=== PATIENT | female | born 1960 | race Caucasian/White ===

== ENCOUNTER 2024-11-06 15:45 | Emergency (ER) | payer BC, SELFPAY ==
[2024-11-06 15:56] VITALS: BP 154/74; PULSE 94; RESP 22; TEMP 36.8; O2SAT 99
[2024-11-06 16:14] VITALS: PULSE 88; RESP 16; O2SAT 97
--- NOTE | 2024-11-06 16:46 | EDNOTE_ITS ---
ED SOB =RME/HPI General Chief Complaint: Shortness of Breath/Dyspnea Stated Complaint: SOB Time Seen by Provider: 11/06/24 16:43 Arrival date/time: 11/06/24 15:45 Limitations: no limitations RME / HPI RME / HPI Narrative: 64 year old female with history of asthma presents to the ED BIBA from work for evaluation of shortness of breath. Patient described her chest feeling tight making it difficult to take a deep breath. Accompanied by a cough. States she gave herself 10 puffs of Albuterol inhaler without relief, prompting ED visit. Per medics, on arrival patient had audible wheezing and saturating low 94% on room air. Was given two 2.5mg Albuterol breathing treatments with improvement. While in the ED, patient reports feeling shaky which she attributes to the Albuterol and shortness of breath has improved. States her symptoms today were similar to previous asthma attacks, last occurring 3 months ago. Denies fevers, chills, sweats, or recent illness. Related Data Home Medications ?Medication ?Instructions ?Recorded ?Confirmed budesonide 0.5 mg/2 mL suspension 0.5 mg inhalation NH N PRN Dyspnea 02/18/21 02/18/21 for nebulization albuterol sulfate 90 mcg/actuation 90 mcg inhalation Q 4HR PRN Dyspnea 02/19/21 02/19/21 aerosol inhaler albuterol sulfate 90 mcg/actuation 2 puff inhalation Q 4HR PRN Dyspnea 02/19/21 02/19/21 aerosol inhaler (Proventil HFA) aspirin 81 mg tablet 81 mg PO DAILY 02/19/2109/04 Allergies Allergy/AdvReac Type Severity Reaction Status Date / Time amitriptyline (From Elavil) Allergy Palpitation Verified 02/19/21 07:45 s buspirone (From BuSpar) Allergy Palpitation Verified 02/19/21 07:45 s Review of Systems Review of Systems Systems Reviewed: All systems reviewed, normal except as documented Past Medical History Past Medical History NEUROLOGIC: Positive Holly's Palsy CARDIAC: Positive Cardiac Disorders (heart attack in october 2020) and Angina RESPIRATORY: Positive Pneumonia (covid pneuonia) and Sleep Apnea (uses Cpap) GASTROINTESTINAL: Positive Hemorrhoids ENT: Positive Cataracts and Ear Infection ENDOCRINE: Positive Hyperthyroidism and Hypothyroidism (no meds taken) PSYCHO/SOCIAL: Positive Depression (no meds) and Anxiety (no meds) OTHER HISTORY: Positive Hospitalization and Shingles Family History FAMILY HISTORY: Positive Family Respiratory Disorders (asthma and alergies), Family Cardiac Disorders (grandma and mom) and Family Anesthesia Reaction (mother) Surgical History SURGICAL: Positive Tonsillectomy and Tubal Ligation; Negative Cardiac Surgery Social History SMOKING STATUS: Former smoker ED Exam General Limitations: Present no limitations General appearance: Present alert and in no apparent distress Head Head exam: Present atraumatic, normocephalic and normal inspection Eye Eye exam: Present normal appearance, PERRL and EOMI ENT ENT exam: Present normal exam, normal oropharynx and mucous membranes moist Neck Neck exam: Present normal inspection, full ROM and trachea midline Chest Chest inspection: Present normal inspection and symmetric chest wall rise Respiratory Respiratory exam: Present normal lung sounds bilaterally Cardiovascular Cardiovascular exam: Present regular rate, normal rhythm and normal heart sounds Abdominal Exam Abdominal exam: Present soft and normal bowel sounds Extremities Exam Extremities exam: Present normal inspection and full ROM Back Exam Back exam: Present normal inspection and full ROM Neurological Exam Neurological exam: Present alert, oriented X3 and CN II-XII intact Psychiatric Psychiatric exam: Present normal affect and normal mood Skin Skin exam: Present warm, dry, intact and normal color Course Quality Measures none Orders Category Date Time Status MethylPREDNISolone.* [SoluMEDROL Inj] Med 11/06/24 16:44 Discontinued 125 mg IVP X1 ONE Vital Signs Vital signs: Vital Signs Temperature 98.3 F 11/06/24 15:56 Pulse Rate 94 11/06/24 15:56 Respiratory Rate 22 H 11/06/24 15:56 Blood Pressure 154/74 H 11/06/24 15:56 Pulse Oximetry (%) 99 11/06/24 15:56 Oxygen Delivery Method Nasal Cannula 11/06/24 15:56 Oxygen Flow Rate 2 11/06/24 15:56 Pulse ox is 97% on room air which is adequate. Shortness of Breath / Dyspnea MDM Narrative MDM Narrative:: Ana Maria Mulligan am scribing for and in the presence of Dr. Donis. Patient data External records reviewed:: [facility] previous records (I reviewed ED visit on 02/15/2018 ) and EMS form Clinical information provided by:: patient and EMS Social determinants that could affect healthcare access:: none Patient has the following chronic illnesses:: Asthma How is presenting disease/condition affected by chronic disease/condition?: exacerbated by Evaluation data The following diagnostics were reviewed and interpreted by me:: other (specify) (No diagnostics ordered ) Lab and/or radiology exams considered but not ordered:: None Interpretation Summary: No diagnostics ordered Medications / Prescriptions Medications or Prescriptions considered but not ordered:: None Medication administrations:: Medication Administration History Discontinued Medications Methylprednisolone Sodium Succinate (Methylprednisolone Sod Succ 62.5 Mg/Ml 2ml Vial) 125 mg IVP X1 ONE Stop: 11/06/24 16:45 See above Consultations Consultation(s) initiated? (list below): No Diagnosis Shortness of Breath Differential Diagnosis: acute exacerbation of chronic obstructive airways disease, community acquired pneumonia and asthma with exacerbation Most likely diagnosis given after review of the tests above:: Asthma exacerbation Admission Indicated Admission indicated?: not indicated Admission Request Was there a request for admission?: No Disposition Plan Disposition Plan: Discharge Discharge Attestation Discharge Attestation: The patient and all family members were given an opportunity to ask questions and understood the discharge instructions. Discharge instructions specifically effects, indications for sooner follow up or return to the emergency department, and the expected course of current diagnosis. Patient condition: Stable Discharge Plan Plan Patient Disposition: HOME (Self Care) Prescriptions/Referrals Prescriptions/Med Rec: No Action budesonide 0.5 mg/2 mL Suspension For Nebulization 0.5 mg INHALATION PRN PRN (Reason: Dyspnea) aspirin 81 mg Tablet 81 mg PO DAILY albuterol sulfate 90 mcg/actuation Hfa Aerosol Inhaler 90 mcg INHALATION Q4HR PRN (Reason: Dyspnea) albuterol sulfate [Proventil HFA] 90 mcg/actuation Hfa Aerosol Inhaler 2 puff INHALATION Q4HR PRN (Reason: Dyspnea) Problem List Clinical Impression: Asthma exacerbation Patient/Caregiver Discharge Instructions Education Materials: Asthma Additional Instructions: Please return immediately if you have worsening symptoms or any symptoms of concern. Please follow-up with your primary care doctor. Print Language: Armenian Stand Alone Forms: [employer] Info., Patient Portal Info Letter
[2024-11-06 16:50] VITALS: BP 147/80; PULSE 80; RESP 17; TEMP 36.4; O2SAT 98
[2024-11-06 17:23] VITALS: BP 158/81; PULSE 88; RESP 20; TEMP 36.4; O2SAT 99
[2024-11-06] MEDS: MethylPREDNISolone SOD SUCC 62.5 MG/ML 2ML VIAL 125 MG IVP (17:26)
== END 2024-11-06 17:51 | disposition home or self-care (01) ==
LOC: SERX 16:58
PROVIDERS: Emergency Provider Emergency Medicine; PCP Family Medicine
DX: J45.901 Unspecified asthma with (acute) exacerbation (principal)
CPT/HCPCS: 96374; 99283; J2919

== ENCOUNTER → 2025-02-14 | Outpatient (CLI) | payer BC, SELFPAY ==
[2025-02-14 08:06] LABS: Collection Type, Urine Clean Catch
[2025-02-14 08:42] LABS: Basophils # (Auto) 0.1 Thou/mm3 (0.0-0.2); Basophils % (Auto) 2 % (0-2.5); Eosinophils # (Auto) 0.3 Thou/mm3 (0.0-0.5); Eosinophils % (Auto) 4 % (0-10); Hematocrit 44.6 % (36.0-46.0); Hemoglobin 14.3 g/dL (12.0-16.0); Immature Granulocytes Auto 0.02 Thou/mm3 (0.00-0.00); Lymphocytes # (Auto) 1.6 Thou/mm3 (1.0-4.8); Lymphocytes % (Auto) 27 % (10-50); Mean Corpuscular HGB Conc 32.1 g/dl (31.0-37.0); Mean Corpuscular Hemoglobin 29.1 pg (25.0-35.0); Mean Corpuscular Volume 91 fL (80-100); Monocytes # (Auto) 0.5 Thou/mm3 (0.0-0.8); Monocytes % (Auto) 8 % (0-12); Neutrophils # (Auto) 3.5 Thou/mm3 (1.8-7.7); Neutrophils % (Auto) 59 % (37-80); Nucleated Red Blood Cell # 0.00 Thou/mm3 (0.00-0.00); Nucleated Red Blood Cell % 0 /100 WBC (0); Platelet Count 292 Thou/mm3 (140-440); RDW Standard Deviation 49.0 fL (36.4-46.3); Red Blood Count 4.92 Miln/mm3 (4.00-5.20); White Blood Count 6.0 Thou/mm3 (3.6-11.0)
[2025-02-14 08:46] LABS: Vitamin B12 845 pg/mL (211-911); Vitamin D 25 Hydroxy Total 29.0 ng/mL (7.3-40.2)
[2025-02-14 08:59] LABS: Alanine Aminotransferase 31 U/L (10-49); Albumin, Serum 4.8 gm/dL (3.4-4.8); Albumin/Globulin Ratio 2.7 (1.2-2.2); Alkaline Phosphatase 68 U/L (46-116); Anion Gap 8 (7-16); Aspartate Amino Transferase 21 U/L (0-34); BUN/Creatinine Ratio 16 Ratio (12-20); Bilirubin,Total 0.7 mg/dL (0.3-1.2); Blood Urea Nitrogen 13 mg/dL (9-23); Calcium 10.1 mg/dL (8.3-10.6); Calcium (Corrected) 10.1 mg/dL (8.5-10.1); Carbon Dioxide 27.8 mMol/L (20.0-31.0); Cardiac Risk Estimate 2.9 RATIO (3.7-5.6); Chloride 108 mMol/L (98-107); Cholesterol 269 mg/dL (132-200); Creatinine (Component) 0.8 mg/dL (0.6-1.3); Globulin 1.8 gm/dL (2.3-3.5); Glucose 96 mg/dL (74-106); HDL Cholesterol 93 mg/dL (40-60); LDL Cholesterol,Calculated 168 mg/dL (0-130); Osmolality,Calculated 286 (275-295); Potassium 4.3 mMol/L (3.4-5.1); Sodium 144 mMol/L (136-145); Thyroid Stimulating Hormone 10.76 uIU/mL (0.55-4.78); Total Protein 6.6 gm/dL (5.7-8.2); Triglycerides 42 mg/dL (30-150); eGFR > 60 See Note
[2025-02-14 08:59] LABS: Bilirubin,Urine Negative (Negative); Blood,Urine Negative (Negative); Clarity,Urine Clear (Clear/Hazy); Color,Urine Colorless (Lt Yel-Yel); Culture Indicated,Urine Not Indicated; Glucose, Urine Negative (Negative); Ketones,Urine Negative (Negative); Leukocyte Esterase,Urine Negative (Negative); Nitrite,Urine Negative (Negative); PH,Urine 6.5 (5.0-7.0); Protein,Urine Negative (Neg - Trace); RBC,Urine < 1 /hpf (0-3); Specific Gravity,Urine 1.003 (1.001-1.035); Squamous Epithelial Cell,Urine < 1 /hpf (0-5); Urobilinogen,Urine Negative mg/dL (0.0-1.0); WBC,Urine < 1 /hpf (0-5)
== END | disposition home or self-care (01) ==
LOC: COPL 07:15
PROVIDERS: PCP Physician Assistant; Referring Provider Physician Assistant; Visit Provider Physician Assistant
DX: E78.5 Hyperlipidemia, unspecified (principal); E55.9 Vitamin D deficiency, unspecified
CPT/HCPCS: 36415; 80053; 80061; 81001; 82306; 82607; 84443; 85025